=== PATIENT | male | born 1985 ===

== ENCOUNTER 2018-08-04 14:52 | Emergency (ER) | payer OTHER ==
[2018-08-04 15:25] VITALS: BMI 23.6
[2018-08-04 15:26] VITALS: RESP 18; TEMP 98.3; O2SAT 98
--- NOTE | 2018-08-04 15:48 | ED PDOC ---
Arrival/HPI - General Chief Complaint: Abnormal Skin Integrity Historian: Patient - History of Present Illness Narrative History of Present Illness (Text): 08/04/18 15:45 32 y/o female, no significant pmh, nkda, last tetanus under 4 years ago, c/o lt. hand 2nd digit finger laceration by a knife about 1 hour ago by the knife while at work. Aching pain, was bleeding but resolving, no numbness or tingling, no difficulty bending or extending the finger, no other medical or psychological complaints. Past Medical History - Provider Review Nursing Documentation Reviewed: Yes - Infectious Disease Hx of Infectious Diseases: None - Psychiatric Hx Substance Use: No Family/Social History - Physician Review Nursing Documentation Reviewed: Yes Family/Social History: Unknown Family HX Smoking Status: Never Smoked Hx Alcohol Use: Yes Frequency of alcohol use: Socially Hx Substance Use: No Allergies/Home Meds Allergies/Adverse Reactions: Allergies No Known Allergies Allergy (Verified 08/04/18 15:26) Review of Systems - Review of Systems Constitutional: absent: Fatigue, Fevers Eyes: absent: Vision Changes ENT: absent: Hearing Changes Respiratory: absent: SOB, Cough Cardiovascular: absent: Chest Pain Gastrointestinal: absent: Abdominal Pain, Diarrhea, Nausea, Vomiting Musculoskeletal: absent: Arthralgias, Back Pain, Neck Pain Skin: Laceration. absent: Rash, Pruritis, Skin Lesions, Abscess, Ulcer, Cellulitis Neurological: absent: Headache, Dizziness Psychiatric: absent: Anxiety, Depression, Suicidal Ideation Physical Exam Vital Signs Reviewed: Yes Vital Signs Temp Pulse Resp BP Pulse Ox 08/04/18 15:25 98.3 F 70 18 120/73 98 Temperature: Afebrile Blood Pressure: Normal Pulse: Regular Respiratory Rate: Normal Appearance: Positive for: Well-Appearing, Non-Toxic, Comfortable Pain Distress: Mild Mental Status: Positive for: Alert and Oriented X 3 - Systems Exam Head: Present: Atraumatic, Normocephalic Pupils: Present: PERRL Extroacular Muscles: Present: EOMI Conjunctiva: Present: Normal Mouth: Present: Moist Mucous Membranes Neck: Present: Normal Range of Motion Respiratory/Chest: Present: Clear to Auscultation, Good Air Exchange. No: Respiratory Distress, Accessory Muscle Use Cardiovascular: Present: Regular Rate and Rhythm, Normal S1, S2. No: Murmurs Abdomen: No: Tenderness, Distention, Peritoneal Signs Back: Present: Normal Inspection Upper Extremity: Present: Normal Inspection, Other (Lt. hand 2nd digit: visible approx. 1.5cm laceration on the lateral DIPJ region, FROM without limitation, sensation intact, motor 5/5, +radial pulse, capillary refill< 2 seconds, neurovascular intact, normal 2pts. finger discrimination, +radial pulse, capillary refill< 2 seconds, neurovasular intact. ). No: Cyanosis, Edema Lower Extremity: Present: Normal Inspection. No: Edema Neurological: Present: GCS=15, CN II-XII Intact, Speech Normal Skin: Present: Warm, Dry, Normal Color. No: Rashes Psychiatric: Present: Alert, Oriented x 3, Normal Insight, Normal Concentration Medical Decision Making ED Course and Treatment: 08/04/18 15:48 -Motrin/keflex -Lt. hand xray -Observe and reassess 08/04/18 16:04 PROCEDURE: LACERATION REPAIR Performed by the emergency provider Location: Lt. hand 2nd digit Length: 1.5 cm Description: {"clean wound edges","no foreign bodies"} Distal CMS: Normal. No deficits. Neurovascularly intact. Anesthesia: Lidocaine 1% 2cc for digital block Preparation: The wound was cleaned with NS 1000cc and clean with betadine. The area was prepped and draped in the usual sterile fashion. Exploration: The wound was explored and no foreign bodies were found. Procedure: The wound was closed with 5-0 nylon. There was {good / appropriate / adequate / loose} approximation. In total, 5 were used. Post-Procedure: Good closure and hemostasis. The patient tolerated the procedure well and there were no complications. CSM remains intact. Post procedure dressing applied. 08/04/18 17:57 -xray show no fracture/dislocation -Discharge home with keflex, motrin, bacitracin oinment, keep it dry and clean for 2 days, sutures need to be removed by day 12, avoid strenuous exercise or activity, follow up with your own pmd and hand specialist within 2 days, return to the ER for any new or worsening signs or symptoms. - RAD Interpretation Radiology Orders: 08/04/18 15:43 HAND LEFT 2ND DIGIT (FINGER) [RAD] Stat PROCEDURE: Left Hand and 2nd digit radiographs. HISTORY: lt. hand 2nd digit finger laceration COMPARISON: None. TECHNIQUE: 3 views obtained. FINDINGS: BONES: Normal. No fracture. JOINTS: Normal. No osteoarthritic changes. SOFT TISSUES: Normal. OTHER FINDINGS: None. IMPRESSION: Negative study Affiliate Marketing Manager: Radiologist - PA / CONTINUOUS IMPROVEMENT DIRECTOR / Resident Statement MD/DO has reviewed & agrees with the documentation as recorded. Disposition/Present on Arrival - Present on Arrival Any Indicators Present on Arrival: No History of DVT/PE: No History of Uncontrolled Diabetes: No Urinary Catheter: No History of Decub. Ulcer: No History Surgical Site Infection Following: None - Disposition Have Diagnosis and Disposition been Completed?: Yes Diagnosis: Finger laceration Disposition: HOME/ ROUTINE Disposition Time: 17:59 Patient Plan: Discharge Condition: GOOD Additional Instructions: -Discharge home with keflex, motrin, bacitracin oinment, keep it dry and clean for 2 days, sutures need to be removed by day 12, avoid strenuous exercise or activity, follow up with your own pmd and hand specialist within 2 days, return to the ER for any new or worsening signs or symptoms. Prescriptions: Bacitracin Ointment [Bacitracin] 1 appful TOP BID #15 g Cephalexin [Keflex] 500 mg PO TID #21 capsule Ibuprofen [Motrin] 600 mg PO QID PRN #30 tab PRN Reason: Other Referrals: PCP,NO [Primary Care Provider] - Follow up with primary Carson High MD [Staff Provider] - Follow up with primary Kt Palacio MD [Staff Provider] - [place] up with [place] [facility] [place] - Follow up with primary Forms: [facility] (Japanese), WORK NOTE
[2018-08-04 17:44] VITALS: BP 118/69; PULSE 68
--- NOTE | 2018-08-05 08:11 | RAD ---
PROCEDURE: Left Hand and 2nd digit radiographs. HISTORY: lt. hand 2nd digit finger laceration COMPARISON: None. TECHNIQUE: 3 views obtained. FINDINGS: BONES: Normal. No fracture. JOINTS: Normal. No osteoarthritic changes. SOFT TISSUES: Normal. OTHER FINDINGS: None. IMPRESSION: Negative study
== END 2018-08-04 18:39 | disposition home or self-care (01) ==
LOC: ED 14:52
DX: S61.211A Laceration without foreign body of left index finger without damage to nail, initial encounter (principal); W26.0XXA Contact with knife, initial encounter; Y92.89 Other specified places as the place of occurrence of the external cause; Y99.0 Civilian activity done for income or pay

== ENCOUNTER 2018-08-10 11:57 | Emergency (ER) | payer OTHER ==
[2018-08-10 11:58] VITALS: BMI 23.6
[2018-08-10 13:01] VITALS: BP 144/81; PULSE 59; RESP 18; TEMP 97.4; O2SAT 99
--- NOTE | 2018-08-10 13:27 | ED PDOC ---
Arrival/HPI - General Chief Complaint: Suture/Staple Removal Time Seen by Provider: 08/10/18 11:58 Historian: Patient - History of Present Illness Narrative History of Present Illness (Text): 08/10/18 13:28 32yr old male presents today for suture removal to the left 2nd finger. pt states about 1 week ago he sustained a laceration to the finger with a knife. pt denies fever/chills. denies pain. denies decreased rom of finger. denies pain. no other complaints. Past Medical History - Provider Review Nursing Documentation Reviewed: Yes - Travel History Have you recently traveled outside [place] w/in the past 3 mons?: No - Infectious Disease Hx of Infectious Diseases: None - Tetanus Immunization Tetanus Immunization: Up to Date - Psychiatric Hx Substance Use: No Family/Social History - Physician Review Nursing Documentation Reviewed: Yes Family/Social History: Unknown Family HX Smoking Status: Never Smoked Hx Alcohol Use: Yes Hx Substance Use: No Allergies/Home Meds Allergies/Adverse Reactions: Allergies No Known Allergies Allergy (Verified 08/10/18 12:52) Review of Systems - Review of Systems Constitutional: absent: Fatigue, Fevers Respiratory: absent: SOB, Cough Cardiovascular: absent: Chest Pain, Palpitations Gastrointestinal: absent: Abdominal Pain, Nausea, Vomiting Musculoskeletal: absent: Arthralgias Skin: Laceration Physical Exam Vital Signs Reviewed: Yes Vital Signs Temp Pulse Resp BP Pulse Ox 08/10/18 12:48 97.4 F L 59 L 18 144/81 99 Temperature: Afebrile Blood Pressure: Normal Pulse: Regular Respiratory Rate: Normal Appearance: Positive for: Well-Appearing, Non-Toxic, Comfortable Pain Distress: None Mental Status: Positive for: Alert and Oriented X 3 - Systems Exam Head: Present: Atraumatic Respiratory/Chest: Present: Clear to Auscultation Cardiovascular: Present: Regular Rate and Rhythm Upper Extremity: Present: Normal ROM, NORMAL PULSES, Neurovascularly Intact, Capillary Refill < 2s, Other (left 2nd finger; [address] no edema, no erythema; no ecchymosis; full rom of finger. sensation and distal pulses intact. cap refill <2. ). No: Tenderness, Swelling, Erythema Medical Decision Making ED Course and Treatment: 08/10/18 13:32 patient is nontoxic well-appearing in no distress. Vital signs are stable. Suture removal: 5 sutures removed Wound healing well without signs of infection I advised the patient to keep the wound clean and dry f/u with hand specialist. advised return if symptoms worsen persist or if new symptoms develop Patient verbalizes understanding of discharge instructions and need for immediate followup. Impression: Wound check, suture removal Keep the wound clean and dry Follow up with primary care physician within the next 2 days Follow-up with a hand specialist Return immediately if symptoms worsen persist or if new symptoms develop Disposition/Present on Arrival - Present on Arrival Any Indicators Present on Arrival: No History of DVT/PE: No History of Uncontrolled Diabetes: No Urinary Catheter: No History of Decub. Ulcer: No History Surgical Site Infection Following: None - Disposition Have Diagnosis and Disposition been Completed?: Yes Diagnosis: Visit for suture removal Disposition: HOME/ ROUTINE Disposition Time: 13:24 Patient Plan: Discharge Condition: GOOD Discharge Instructions (ExitCare): Stitches Removal Additional Instructions: Keep the wound clean and dry Follow up with primary care physician within the next 2 days follow up with the hand specialist. Return immediately if symptoms worsen persist or if new symptoms develop Referrals: [facility] at [Outside] - Follow up with primary [facility] [place] [Outside] - Follow up with primary Kt Palacio MD [Staff Provider] - Follow up with primary Adia Smyth MD [Medical Doctor] - Follow up with primary
== END 2018-08-10 13:35 | disposition home or self-care (01) ==
LOC: ED 11:57
DX: S61.211D Laceration without foreign body of left index finger without damage to nail, subsequent encounter (principal); W26.0XXD Contact with knife, subsequent encounter